=== PATIENT | male | born 1980 | race Caucasian/White ===

== ENCOUNTER 2023-04-08 12:49 | Outpatient (OUT) | payer BC, SELFPAY ==
[2023-04-08 13:57] LABS: TSH W/ REFLEX FT4 1.705 uIU/mL (0.358-3.740)
== END 2023-04-08 12:50 | disposition home or self-care (01) ==
LOC: LAB 12:49
PROVIDERS: Family Provider Family Medicine
DX: Z13.29 Encounter for screening for other suspected endocrine disorder (principal)
CPT/HCPCS: 36415; 84443